=== PATIENT | male | born 1965 | race Caucasian/White ===

== ENCOUNTER 2017-10-10 21:56 | Emergency (ER) | payer BC ==
[~2017-10-10] VITALS: Ht 165.1 cm; Wt 75.0 kg
[~2017-10-10 21:56] MED LIST: ALPR-138 PO; CEPH500; HYDR-3129 PO; HYDR-3534 PO; METO50TA PO
[2017-10-10 21:57] VITALS: BP 142/104; PULSE 132; RESP 18; TEMP 98.7; O2SAT 97
[2017-10-10] MEDS ORDERED: METO50TA PO (22:33)
[2017-10-10] MEDS ORDERED: HYDR-3583 PO (22:33)
[2017-10-10] MEDS ORDERED: METF1000 PO (22:33)
[2017-10-10] MEDS ORDERED: ALPR.5 PO (22:33)
[2017-10-10] MEDS ORDERED: ROSU40 PO (22:34)
[2017-10-10 22:35] VITALS: BP 137/71; PULSE 117; RESP 18; TEMP 99.5; O2SAT 97
[2017-10-10] MEDS ORDERED: PANTOPRAZOLE SODIUM 40 MG VIAL IV PUSH ONE (23:00)
[2017-10-10] MEDS ORDERED: LIDOCAINE VISCOUS 2% SOLN 15 ML UDC SWISH-SWAL ONE (23:00)
[2017-10-10] MEDS ORDERED: ALUMINUM/MAGNESIUM/SIMETH 30 ML CUP PO ONE (23:00)
[2017-10-10] MEDS ORDERED: ONDANSETRON HCL 4 MG/2 ML VIAL ONE (23:18)
[2017-10-10 23:45] LABS: AUTOMATED NEUTROPHIL # 5.9 TH/MM3 (1.8-7.7); BASOPHIL % 0.2 % (0.0-2.0); EOSINOPHIL % 0.4 % (0.0-4.0); HEMATOCRIT 46.8 % (39.0-51.0); HEMOGLOBIN 16.1 GM/DL (13.0-17.0); LYMPH % 22.1 % (9.0-44.0); LYMPHOCYTE # 1.9 TH/MM3 (1.0-4.8); MEAN CELL VOLUME 102.2 FL (80.0-100.0); MEAN CORPUSCULAR HEMOGLOBIN 35.1 PG (27.0-34.0); MEAN CORPUSCULAR HGB CONC 34.3 % (32.0-36.0); MEAN PLATELET VOLUME 9.2 FL (7.0-11.0); MONO % 8.1 % (0.0-8.0); MONOCYTE # 0.7 TH/MM3 (0-0.9); NEUT % 69.2 % (16.0-70.0); PLATELET COUNT 103 TH/MM3 (150-450); RED BLOOD COUNT 4.58 MIL/MM3 (4.50-5.90); RED CELL DISTRIBUTION WIDTH 12.9 % (11.6-17.2); WHITE BLOOD COUNT 8.6 TH/MM3 (4.0-11.0)
--- NOTE | 2017-10-10 23:54 | PD ---
HPI Chief Complaint: Abdominal Pain Time Seen by Provider: 22:23 Travel History International Travel<30 days: No Contact w/Intl Traveler<30days: No Traveled to known affect area: No History of Present Illness HPI Patient is a 52-year-old male coming in with epigastric periumbilical pain that' s been off and on for the last few weeks. He denies having history of pancreatitis he denies having gallbladder history he does have a gastritis he takes by mouth PPIs he has got no relief from all the meds he tried at home. PFSH Past Medical History Arthritis: Yes (low back) Autoimmune Disease: No Blood Disorders: No Anxiety: Yes Depression: No Heart Rhythm Problems: Yes (TACHYCARDIA) Cancer: No Cardiovascular Problems: No High Cholesterol: Yes Chemotherapy: No Congestive Heart Failure: No Diabetes: No Diminished Hearing: No Endocrine: No Gastrointestinal Disorders: Yes (ESOPHAGEAL DILATION X2) GERD: Yes (none for past 7 years) Glaucoma: No Genitourinary: No Hepatitis: No Hiatal Hernia: No Heparin Induced Thrombocytopen: No Hypertension: Yes Immune Disorder: No Implanted Vascular Access Dvce: No Medical other: No Musculoskeletal: Yes (LUMBAR PAIN) Neurologic: No Psychiatric: Yes (ANXIETY) Respiratory: Yes (HX LEGIONAIRES DIS.) Immunizations Current: Yes Myocardial Infarction: No Radiation Therapy: No Seizures: Yes (1 SEIZURE 2 YEARS AGO) Sickle Cell Disease: No Sleep Apnea: Yes (according to girlfriend) Thyroid Disease: No Ulcer: No Tetanus Vaccination: < 5 Years Influenza Vaccination: No Past Surgical History Abdominal Surgery: No AICD: No Arteriovenous Shunt: No Cardiac Surgery: No Genitourinary Surgery: No Insulin Pump: No Joint Replacement: No Neurologic Surgery: Yes (LUMBAR DISCECTOMY) Pacemaker: No Thoracic Surgery: Yes (BRONCHOSCOPY) Other Surgery: Yes (back surgery, left knee surgery) Social History Alcohol Use: Yes (EVERY WEEKEND; ALOT) Tobacco Use: Yes (3/4 PPD) Substance Use: No Allergies-Medications (Allergen,Severity, Reaction): Coded Allergies: No Known Allergies (Verified Adverse Reaction, Unknown, 10/10/17) Reported Meds & Prescriptions Reported Meds & Active Scripts Active Reglan (Metoclopramide HCl) 10 Mg Tab 10 Mg PO QID Protonix (Pantoprazole Sodium) 40 Mg Tab 40 Mg PO DAILY Pepcid (Famotidine) 20 Mg Tab 20 Mg PO BID Reported Crestor (Rosuvastatin Calcium) 40 Mg Tab 40 Mg PO DAILY Xanax (Alprazolam) 0.5 Mg Tab 0.5 Mg PO Q8H PRN Hydrocodone-Acetaminophen 10-325 mg Tab 1 Tab PO Q6H PRN Metoprolol Tartrate 50 Mg Tab 50 Mg PO BID Metformin (Metformin HCl) 1,000 Mg Tab 1,000 Mg PO BIDPC Review of Systems Except as stated in HPI: all other systems reviewed are Neg Gastrointestinal: Positive: Nausea, Abdominal Pain Physical Exam Narrative GENERAL: SKIN: Warm and dry. HEAD: Atraumatic. Normocephalic. EYES: Pupils equal and round. No scleral icterus. No injection or drainage. ENT: No nasal bleeding or discharge. Mucous membranes pink and moist. NECK: Trachea midline. No JVD. CARDIOVASCULAR: Regular rate and rhythm. RESPIRATORY: No accessory muscle use. Clear to auscultation. Breath sounds equal bilaterally. GASTROINTESTINAL: Abdomen tender periumbilical soft,. Hepatic and splenic margins not palpable. MUSCULOSKELETAL: Extremities without clubbing, cyanosis, or edema. No obvious deformities. NEUROLOGICAL: Awake and alert. No obvious cranial nerve deficits. Motor grossly within normal limits. Five out of 5 muscle strength in the arms and legs. Normal speech. PSYCHIATRIC: Appropriate mood and affect; insight and judgment normal. Data Data Last Documented VS Vital Signs Date Time Temp Pulse Resp B/P (MAP) Pulse Ox O2 Delivery O2 Flow Rate FiO2 10/11/17 02:49 10/11/17 02:30 101 22 98 Room Air 10/10/17 22:35 99.5 Orders Orders Complete Blood Count With Diff (10/10/17 22:50) Comprehensive Metabolic Panel (10/10/17 22:50) Lipase (10/10/17 22:50) Pantoprazole Inj (Protonix Inj) (10/10/17 23:00) Al-Mag Hy-Si 40-40-4 Mg/Ml Liq (Mag-Al P (10/10/17 23:00) Lidocaine 2% Viscous (Xylocaine 2% Visco (10/10/17 23:00) Ondansetron Inj (Zofran Inj) (10/10/17 23:18) Morphine Inj (Morphine Inj) (10/11/17 00:00) Ct Abd/Pel W Iv Contrast(Rout) (10/11/17 ) Oral Contrast - Adult (10/11/17 00:22) Iohexol 350 Inj (Omnipaque 350 Inj) (10/11/17 01:29) Metoclopramide Inj (Reglan Inj) (10/11/17 02:00) Morphine Inj (Morphine Inj) (10/11/17 02:00) Ed Discharge Order (10/11/17 02:36) Electrocardiogram (10/11/17 02:19) Labs Laboratory Tests Test 10/10/17 23:32 White Blood Count 8.6 TH/MM3 Red Blood Count 4.58 MIL/MM3 Hemoglobin 16.1 GM/DL Hematocrit 46.8 % Mean Corpuscular Volume 102.2 FL Mean Corpuscular Hemoglobin 35.1 PG Mean Corpuscular Hemoglobin Concent 34.3 % Red Cell Distribution Width 12.9 % Platelet Count 103 TH/MM3 Mean Platelet Volume 9.2 FL Neutrophils (%) (Auto) 69.2 % Lymphocytes (%) (Auto) 22.1 % Monocytes (%) (Auto) 8.1 % Eosinophils (%) (Auto) 0.4 % Basophils (%) (Auto) 0.2 % Neutrophils # (Auto) 5.9 TH/MM3 Lymphocytes # (Auto) 1.9 TH/MM3 Monocytes # (Auto) 0.7 TH/MM3 Eosinophils # (Auto) 0.0 TH/MM3 Basophils # (Auto) 0.0 TH/MM3 CBC Comment DIFF FINAL Differential Comment Blood Urea Nitrogen 8 MG/DL Creatinine 1.42 MG/DL Random Glucose 108 MG/DL Total Protein 9.4 GM/DL Albumin 5.2 GM/DL Calcium Level 10.6 MG/DL Alkaline Phosphatase 78 U/L Aspartate Amino Transf (AST/SGOT) 50 U/L Alanine Aminotransferase (ALT/SGPT) 47 U/L Total Bilirubin 0.8 MG/DL Sodium Level 138 MEQ/L Potassium Level 3.1 MEQ/L Chloride Level 100 MEQ/L Carbon Dioxide Level 26.4 MEQ/L Anion Gap 12 MEQ/L Estimat Glomerular Filtration Rate 52 ML/MIN Lipase 428 U/L [facility] Medical Decision Making Medical Screen Exam Complete: Yes Emergency Medical Condition: Yes Differential Diagnosis pancreatitis vs GB disease Gastritis vs mesenteric adenitis, other Narrative Course CAT scan was negative for any acute pathology lipase is only 428 Protonix given Zofran is given Reglan is given morphine 4 mg 2 is discharged with a copy of the results of his CAT scan and prescriptions for Reglan and Pepcid and Protonix Diagnosis Primary Impression: Gastritis Qualified Codes: 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
[2017-10-11 00:02] LABS: ALBUMIN 5.2 GM/DL (3.4-5.0); ALT (GPT) 47 U/L (12-78); AST (GOT) 50 U/L (15-37); BICARBONATE 26.4 MEQ/L (21.0-32.0); BLOOD UREA NITROGEN 8 MG/DL (7-18); CALCIUM 10.6 MG/DL (8.5-10.1); CHLORIDE 100 MEQ/L (98-107); CREATININE 1.42 MG/DL (0.60-1.30); GLOMERULAR FILTRATION RATE 52 ML/MIN (>89); GLUCOSE,RANDOM 108 MG/DL (74-106); LIPASE 428 U/L (73-393); SODIUM (NA) 138 MEQ/L (136-145)
[2017-10-11 00:05] LABS: ALKALINE PHOSPHATASE 78 U/L (45-117); TOTAL BILIRUBIN ADULT 0.8 MG/DL (0.2-1.0); TOTAL PROTEIN 9.4 GM/DL (6.4-8.2)
[2017-10-11] MEDS ORDERED: IOHEXOL 350 MG/ML 10 ML VIAL (for RAD DIAG) IVCONTRAST ONE (01:29)
--- NOTE | 2017-10-11 01:51 | RADRPT ---
EXAM DATE/TIME: 10/11/2017 01:16 [place] COMPARISON: No previous studies available for comparison. INDICATIONS : Abdominal pain. IV CONTRAST: 100 cc Omnipaque 350 (iohexol) IV ORAL CONTRAST: No oral contrast ingested. RADIATION DOSE: 6.71 CTDIvol (mGy) MEDICAL HISTORY : Hypertension. Cardiovascular disease Liver disease. SURGICAL HISTORY : None. ENCOUNTER: Initial ACUITY: 1 day PAIN SCALE: 8/10 LOCATION: abdomen TECHNIQUE: Volumetric scanning of the abdomen and pelvis was performed. Using automated exposure control and ad justment of the mA and/or kV according to patient size, radiation dose was kept as low as reasonably achievable to obtain optimal diagnostic quality images. DICOM format image data is available electro nically for review and comparison. FINDINGS: LOWER LUNGS: The visualized lower lungs are clear. LIVER: Moderate severity diffuse hypodensity of the liver indicating hepatic steatosis. A 8mm hyperdensity i n the dependent portion of the gallbladder indicating small calculi or sludge. No pericolic cystic in flammatory changes identified. SPLEEN: Normal size without lesion. PANCREAS: Within normal limits. KIDNEYS: Normal in size and shape. There is no mass, stone or hydronephrosis. ADRENAL GLANDS: Within normal limits. VASCULAR: There is no aortic aneurysm. BOWEL/MESENTERY: Mild proximal small bowel distention. No transition point. No bowel wall thickening identified.. No f ree air or free fluid. Appendix within normal limits. ABDOMINAL WALL: Within normal limits. RETROPERITONEUM: There is no lymphadenopathy. BLADDER: No wall thickening or mass. REPRODUCTIVE: Within normal limits. INGUINAL: Small fat containing left inguinal hernia. MUSCULOSKELETAL: Small osteophytes of the hips bilaterally. Mild degenerative findings of the lumbar spine. CONCLUSION: 1. Hepatic steatosis. 2. Cholelithiasis versus sludge. No pericholecystic inflammatory changes. 3. Nonspecific mild proximal small bowel dilatation. No transition point. Tonny Echeverria MD on October 11, 2017 at 1:41 Board Certified Radiologist. This report was verified electronically.
[2017-10-11] MEDS ORDERED: MORPHINE SULFATE 4 MG/ML INJ IV PUSH ONE ×2 (02:00)
[2017-10-11] MEDS ORDERED: METOCLOPRAMIDE INJ 10 MG in SODIUM CHLORIDE 0.9% INJ 50 ML IV ONE (02:00)
[2017-10-11 02:30] VITALS: BP 122/78; PULSE 101; RESP 22; O2SAT 98
[2017-10-11] MEDS ORDERED: PROT40TA PO (02:40)
[2017-10-11] MEDS ORDERED: FAMO1TAB37 PO (02:40)
[2017-10-11] MEDS ORDERED: REGL10TA5 PO (03:13)
--- NOTE | 2017-10-11 10:42 | EKG ---
Date Performed: 10/11/2017 Time Performed: 02:19:43 PTAGE: 52 years EKG: SINUS TACHYCARDIA ABNORMAL RHYTHM ECG PREVIOUS TRACING : 08/11/2009 08.23 No significant change from previous tracing noted. DOCTOR: Leo Harman Interpretating Date/Time 10/11/2017 10:39:47
== END 2017-10-11 03:32 | disposition home or self-care (01) ==
LOC: NEPE 21:56
DX: K29.70 Gastritis, unspecified, without bleeding (principal); R00.0 Tachycardia, unspecified; R94.31 Abnormal electrocardiogram [ECG] [EKG]; M47.9 Spondylosis, unspecified; F41.9 Anxiety disorder, unspecified; E78.00 Pure hypercholesterolemia, unspecified; K21.9 Gastro-esophageal reflux disease without esophagitis; I10 Essential (primary) hypertension; F17.200 Nicotine dependence, unspecified, uncomplicated
CPT/HCPCS: 74177; 80053; 83690; 85025; 93005; 96374; 96375; 96376; 99285; C9113; J2270; J2405; J2765; Q9967

== ENCOUNTER 2017-11-10 20:11 | Emergency (ER) | payer BC ==
[~2017-11-10] VITALS: Ht 170.2 cm; Wt 79.5 kg
[~2017-11-10 20:11] MED LIST changes: -ALPR-138 PO; +ALPR.5 PO; -CEPH500; +FAMO1TAB37 PO; -HYDR-3129 PO; -HYDR-3534 PO; +HYDR-3583 PO; +METF1000 PO; +PROT40TA PO; +REGL10TA5 PO; +ROSU40 PO
[2017-11-10 20:14] VITALS: BP 151/81; PULSE 116; RESP 16; TEMP 97.9; O2SAT 98
[2017-11-10] MEDS ORDERED: SODIUM CHLOR 0.9% 1000 ML INJ 1,000 ML IV SCH (20:35)
[2017-11-10 20:50] VITALS: RESP 19; O2SAT 98
--- NOTE | 2017-11-10 21:07 | PD ---
HPI Chief Complaint: Abdominal Pain Time Seen by Provider: 20:23 Travel History International Travel<30 days: No Contact w/Intl Traveler<30days: No Traveled to known affect area: No History of Present Illness HPI 52-year-old male presents emergency department complaining of abdominal pain and nausea for about 1 week. Patient states that she has had this abdominal pain for 4-5 months and has been evaluated previously but has not had a follow- up with a gastric intestinal doctor. Patient states that his abdominal pain is located in the mid abdomen area and is characterized as sharp, nonradiating, and intermittent. Patient states that at its worse, this pain is 8 out of 10 that lasts for about 10 minutes then goes away to a 4 out of 10. Patient states she he is nauseous and has had a decreased appetite for about a week. Denies diarrhea. Patient says his last bowel movement was 2 days ago which is normal for him. He says that he has had dark stools but denies hematochezia. Denies abdominal surgeries. Denies chronic medical issues or medication use. States he did receive Reglan and another medication at discharge but has not had a refill his medications. Patient states that Reglan controlled his abdominal pain previously. PFSH Past Medical History Arthritis: Yes (low back) Autoimmune Disease: No Blood Disorders: No Anxiety: Yes Depression: No Heart Rhythm Problems: Yes (TACHYCARDIA) Cancer: No Cardiovascular Problems: Yes (HTN, hyperlipidemia) High Cholesterol: Yes Chemotherapy: No Congestive Heart Failure: No Diabetes: Yes Patient Takes Glucophage: Yes Diminished Hearing: No Endocrine: No Gastrointestinal Disorders: Yes (ESOPHAGEAL DILATION X2) GERD: Yes Glaucoma: No Genitourinary: No Hepatitis: No Hiatal Hernia: No Heparin Induced Thrombocytopen: No Hypertension: Yes Immune Disorder: No Implanted Vascular Access Dvce: No Musculoskeletal: Yes (LUMBAR PAIN) Neurologic: No Psychiatric: Yes (ANXIETY) Respiratory: Yes (HX LEGIONAIRES DIS.) Immunizations Current: Yes Myocardial Infarction: No Radiation Therapy: No Seizures: Yes Sickle Cell Disease: No Sleep Apnea: Yes Thyroid Disease: No Ulcer: No Tetanus Vaccination: < 5 Years Past Surgical History Abdominal Surgery: No AICD: No Arteriovenous Shunt: No Cardiac Surgery: No Genitourinary Surgery: No Insulin Pump: No Joint Replacement: No Neurologic Surgery: Yes (LUMBAR DISCECTOMY) Pacemaker: No Thoracic Surgery: Yes (BRONCHOSCOPY) Other Surgery: Yes (back surgery, left knee surgery) Social History Alcohol Use: Yes (EVERY WEEKEND; ALOT) Tobacco Use: Yes (3/4 PPD) Substance Use: No Allergies-Medications (Allergen,Severity, Reaction): Coded Allergies: No Known Allergies (Verified Adverse Reaction, Unknown, 10/10/17) Reported Meds & Prescriptions Reported Meds & Active Scripts Active Reglan (Metoclopramide HCl) 10 Mg Tab 10 Mg PO QID Protonix (Pantoprazole Sodium) 40 Mg Tab 40 Mg PO DAILY Pepcid (Famotidine) 20 Mg Tab 20 Mg PO BID Reported Crestor (Rosuvastatin Calcium) 40 Mg Tab 40 Mg PO DAILY Xanax (Alprazolam) 0.5 Mg Tab 0.5 Mg PO Q8H PRN Hydrocodone-Acetaminophen 10-325 mg Tab 1 Tab PO Q6H PRN Metoprolol Tartrate 50 Mg Tab 50 Mg PO BID Metformin (Metformin HCl) 1,000 Mg Tab 1,000 Mg PO BIDPC Review of Systems Except as stated in HPI: all other systems reviewed are Neg Physical Exam Narrative GENERAL: Well-nourished in mild distress SKIN: Focused skin assessment warm/dry. HEAD: Atraumatic. Normocephalic. EYES: Pupils equal and round. No scleral icterus. No injection or drainage. ENT: No nasal bleeding or discharge. Mucous membranes pink and moist. NECK: Trachea midline. No JVD. CARDIOVASCULAR: Regular rate and rhythm. No murmur appreciated. RESPIRATORY: No accessory muscle use. Clear to auscultation. Breath sounds equal bilaterally. GASTROINTESTINAL: Abdomen voluntary guarding, TTP to upper abdomen without radiation of pain. No ecchymosis, no fluid wave. MUSCULOSKELETAL: No obvious deformities. No clubbing. No cyanosis. No edema. No CVA tenderness NEUROLOGICAL: Awake and alert. No obvious cranial nerve deficits. Motor grossly within normal limits. Normal speech. PSYCHIATRIC: Appropriate mood and affect; insight and judgment normal. Data Data Last Documented VS Vital Signs Date Time Temp Pulse Resp B/P (MAP) Pulse Ox O2 Delivery O2 Flow Rate FiO2 11/11/17 00:14 100 16 116/58 (77) 100 11/10/17 20:50 Room Air 11/10/17 20:14 97.9 Orders Orders Complete Blood Count With Diff (11/10/17 20:35) Comprehensive Metabolic Panel (11/10/17 20:35) Lipase (11/10/17 20:35) Prothrombin Time / Inr (Pt) (11/10/17 20:35) Act Partial Throm Time (Ptt) (11/10/17 20:35) Iv Access Insert/Monitor (11/10/17 20:35) Ecg Monitoring (11/10/17 20:35) Oximetry (11/10/17 20:35) Sodium Chlor 0.9% 1000 Ml Inj (Ns 1000 M (11/10/17 20:35) Electrocardiogram (11/10/17 20:35) Us Abdomen Gallbladder (11/10/17 ) Metoclopramide Inj (Reglan Inj) (11/10/17 21:15) Morphine Inj (Morphine Inj) (11/10/17 23:00) Morphine Inj (Morphine Inj) (11/10/17 23:00) Lidocaine 2% Viscous (Xylocaine 2% Visco (11/10/17 23:00) Al-Mag Hy-Si 40-40-4 Mg/Ml Liq (Mag-Al P (11/10/17 23:00) Pantoprazole Inj (Protonix Inj) (11/10/17 23:00) Ed Discharge Order (11/10/17 23:32) Labs Laboratory Tests Test 11/10/17 20:45 White Blood Count 7.6 TH/MM3 Red Blood Count 4.42 MIL/MM3 Hemoglobin 15.5 GM/DL Hematocrit 44.9 % Mean Corpuscular Volume 101.7 FL Mean Corpuscular Hemoglobin 35.2 PG Mean Corpuscular Hemoglobin Concent 34.6 % Red Cell Distribution Width 13.3 % Platelet Count 144 TH/MM3 Mean Platelet Volume 9.1 FL Neutrophils (%) (Auto) 61.3 % Lymphocytes (%) (Auto) 31.6 % Monocytes (%) (Auto) 6.2 % Eosinophils (%) (Auto) 0.7 % Basophils (%) (Auto) 0.2 % Neutrophils # (Auto) 4.7 TH/MM3 Lymphocytes # (Auto) 2.4 TH/MM3 Monocytes # (Auto) 0.5 TH/MM3 Eosinophils # (Auto) 0.1 TH/MM3 Basophils # (Auto) 0.0 TH/MM3 CBC Comment DIFF FINAL Differential Comment Prothrombin Time 11.6 SEC Prothromb Time International Ratio 1.1 RATIO Activated Partial Thromboplast Time 26.9 SEC Blood Urea Nitrogen 8 MG/DL Creatinine 1.11 MG/DL Random Glucose 123 MG/DL Total Protein 9.1 GM/DL Albumin 5.0 GM/DL Calcium Level 9.7 MG/DL Alkaline Phosphatase 98 U/L Aspartate Amino Transf (AST/SGOT) 40 U/L Alanine Aminotransferase (ALT/SGPT) 40 U/L Total Bilirubin 1.0 MG/DL Sodium Level 137 MEQ/L Potassium Level 3.3 MEQ/L Chloride Level 100 MEQ/L Carbon Dioxide Level 22.9 MEQ/L Anion Gap 14 MEQ/L Estimat Glomerular Filtration Rate 70 ML/MIN Lipase 181 U/L [facility] Medical Decision Making Medical Screen Exam Complete: Yes Emergency Medical Condition: Yes Differential Diagnosis Cholecystitis, cholangitis, pancreatitis, duodenitis, alcoholic gastritis Narrative Course 52-year-old male presents emergency department complaining of abdominal pain and nausea for about 1 week. Patient states that she has had this abdominal pain for 4-5 months and has been evaluated previously but has not had a follow- up with a gastric intestinal doctor. Patient states that his abdominal pain is located in the mid abdomen area and is characterized as sharp, nonradiating, and intermittent. Patient states that at its worse, this pain is 8 out of 10 that lasts for about 10 minutes then goes away to a 4 out of 10. Patient states she he is nauseous and has had a decreased appetite for about a week. Denies diarrhea. Patient says his last bowel movement was 2 days ago which is normal for him. He says that he has had dark stools but denies hematochezia. Denies abdominal surgeries. Denies chronic medical issues or medication use. States he did receive Reglan and another medication at discharge but has not had a refill his medications. Patient states that Reglan controlled his abdominal pain previously. Admits to drinking 5 drinks daily since he was' a teenager'. Vital signs- mildly tachycardic at 116, 100 while in bed resting. Physical exam findings diffuse of abdominal pain localized to the upper abdominal area. No rebound tenderness. No Rovsing's, Luna's, McBurnys point. Reglan, Maalox and lidocaine, and eventually morphine administered for pain. Lab findings- mild hypokalemia at 3.3. No Leukocytosis Ultrasound demonstrates gallbladder sludge versus stones. No evidence of cholecystitis. After further discussion with the patient, patient states that his pain today is very similar to his previous pain in August. I discussed the likely diagnosis which is gastritis. I advised patient to stop drinking as this likely contributes to his symptoms. Reglan and protonix for outpatient therapy. Patient be discharged with strict instructions to follow up as an outpatient with GI doctor. Diagnosis Primary Impression: Gastritis Qualified Codes: K29.20 - Alcoholic gastritis without bleeding Referrals: Endoscopy Technician Additional Instructions: Decrease alcohol use. Take all medications as prescribed. Follow-up with a superintendent stevedoring. Follow-up with your primary care physician within 2-3 days. Scripts Metoclopramide (Reglan) 10 Mg Tab 10 MG PO QID, #30 TAB 0 Refills Prov: Aisha Willson 11/10/17 Pantoprazole (Protonix) 40 Mg Tab 40 MG PO DAILY for Reflux, #30 TAB 0 Refills Prov: Aisha Willson 11/10/17 Disposition: 01 DISCHARGE HOME Condition: Stable Aisha Willson Nov 10, 2017 21:07
[2017-11-10] MEDS ORDERED: METOCLOPRAMIDE HCL 10 MG/2 ML VIAL IV PUSH ONE (21:15)
[2017-11-10 21:21] LABS: AUTOMATED NEUTROPHIL # 4.7 TH/MM3 (1.8-7.7); BASOPHIL % 0.2 % (0.0-2.0); EOSINOPHIL # 0.1 TH/MM3 (0-0.4); EOSINOPHIL % 0.7 % (0.0-4.0); HEMATOCRIT 44.9 % (39.0-51.0); HEMOGLOBIN 15.5 GM/DL (13.0-17.0); LYMPH % 31.6 % (9.0-44.0); LYMPHOCYTE # 2.4 TH/MM3 (1.0-4.8); MEAN CELL VOLUME 101.7 FL (80.0-100.0); MEAN CORPUSCULAR HEMOGLOBIN 35.2 PG (27.0-34.0); MEAN CORPUSCULAR HGB CONC 34.6 % (32.0-36.0); MEAN PLATELET VOLUME 9.1 FL (7.0-11.0); MONO % 6.2 % (0.0-8.0); MONOCYTE # 0.5 TH/MM3 (0-0.9); NEUT % 61.3 % (16.0-70.0); PLATELET COUNT 144 TH/MM3 (150-450); RED BLOOD COUNT 4.42 MIL/MM3 (4.50-5.90); RED CELL DISTRIBUTION WIDTH 13.3 % (11.6-17.2); WHITE BLOOD COUNT 7.6 TH/MM3 (4.0-11.0)
[2017-11-10 21:29] LABS: INTERNATIONAL NORMALIZED RATIO 1.1 RATIO; PROTHROMBIN TIME - PATIENT 11.6 SEC (9.8-11.6)
[2017-11-10 21:36] LABS: AST (GOT) 40 U/L (15-37); BICARBONATE 22.9 MEQ/L (21.0-32.0); BLOOD UREA NITROGEN 8 MG/DL (7-18); CALCIUM 9.7 MG/DL (8.5-10.1); CHLORIDE 100 MEQ/L (98-107); CREATININE 1.11 MG/DL (0.60-1.30); GLOMERULAR FILTRATION RATE 70 ML/MIN (>89); GLUCOSE,RANDOM 123 MG/DL (74-106); LIPASE 181 U/L (73-393); SODIUM (NA) 137 MEQ/L (136-145)
--- NOTE | 2017-11-10 21:36 | PD ---
Physical Exam Narrative General: The patient is -. Head and Neck exam: Head is normocephalic atraumatic. Eyes: EOMI, pupils are equal round and reactive to light. Nose: Midline septum with pink mucous membranes Mouth: Dentition unremarkable. Moist mucus membranes. Posterior oropharynx is not erythematous. No tonsillar hypertrophy. Uvula midline. Airway patent. Neck: No palpable lymphadenopathy. No nuchal rigidity. No thyromegaly. Cardiovascular: Regular rate and rhythm without murmurs, gallops, or rubs. No pulse deficit to the extremities. Lungs: Clear to auscultation bilaterally. No wheezes, rhonchi, or rales. Abdomen: Soft, without tenderness to palpation in all 4 quadrants of the abdomen. No guarding, rebound, or rigidity. Negative Yolo sign. Extremities: No clubbing, cyanosis, or edema. 2+ pulses in all 4 extremities. Back: No spinous process tenderness to palpation. No costovertebral angle tenderness to palpation. Neurologic Exam: Cranial nerves 2-12 were intact on exam. Strength is 5/5 in all 4 extremities. No sensory deficits noted. No dysdiadochokinesis. Good finger to nose and Heel to cardozo bilaterally. Skin Exam: No rash noted. Intact skin that is warm and dry. Data Data Last Documented VS Vital Signs Date Time Temp Pulse Resp B/P (MAP) Pulse Ox O2 Delivery O2 Flow Rate FiO2 11/11/17 00:14 100 16 116/58 (77) 100 11/10/17 20:50 Room Air 11/10/17 20:14 97.9 Orders Orders Complete Blood Count With Diff (11/10/17 20:35) Comprehensive Metabolic Panel (11/10/17 20:35) Lipase (11/10/17 20:35) Prothrombin Time / Inr (Pt) (11/10/17 20:35) Act Partial Throm Time (Ptt) (11/10/17 20:35) Iv Access Insert/Monitor (11/10/17 20:35) Ecg Monitoring (11/10/17 20:35) Oximetry (11/10/17 20:35) Sodium Chlor 0.9% 1000 Ml Inj (Ns 1000 M (11/10/17 20:35) Electrocardiogram (11/10/17 20:35) Us Abdomen Gallbladder (11/10/17 ) Metoclopramide Inj (Reglan Inj) (11/10/17 21:15) Morphine Inj (Morphine Inj) (11/10/17 23:00) Morphine Inj (Morphine Inj) (11/10/17 23:00) Lidocaine 2% Viscous (Xylocaine 2% Visco (11/10/17 23:00) Al-Mag Hy-Si 40-40-4 Mg/Ml Liq (Mag-Al P (11/10/17 23:00) Pantoprazole Inj (Protonix Inj) (11/10/17 23:00) Ed Discharge Order (11/10/17 23:32) Labs Laboratory Tests Test 11/10/17 20:45 White Blood Count 7.6 TH/MM3 Red Blood Count 4.42 MIL/MM3 Hemoglobin 15.5 GM/DL Hematocrit 44.9 % Mean Corpuscular Volume 101.7 FL Mean Corpuscular Hemoglobin 35.2 PG Mean Corpuscular Hemoglobin Concent 34.6 % Red Cell Distribution Width 13.3 % Platelet Count 144 TH/MM3 Mean Platelet Volume 9.1 FL Neutrophils (%) (Auto) 61.3 % Lymphocytes (%) (Auto) 31.6 % Monocytes (%) (Auto) 6.2 % Eosinophils (%) (Auto) 0.7 % Basophils (%) (Auto) 0.2 % Neutrophils # (Auto) 4.7 TH/MM3 Lymphocytes # (Auto) 2.4 TH/MM3 Monocytes # (Auto) 0.5 TH/MM3 Eosinophils # (Auto) 0.1 TH/MM3 Basophils # (Auto) 0.0 TH/MM3 CBC Comment DIFF FINAL Differential Comment Prothrombin Time 11.6 SEC Prothromb Time International Ratio 1.1 RATIO Activated Partial Thromboplast Time 26.9 SEC Blood Urea Nitrogen 8 MG/DL Creatinine 1.11 MG/DL Random Glucose 123 MG/DL Total Protein 9.1 GM/DL Albumin 5.0 GM/DL Calcium Level 9.7 MG/DL Alkaline Phosphatase 98 U/L Aspartate Amino Transf (AST/SGOT) 40 U/L Alanine Aminotransferase (ALT/SGPT) 40 U/L Total Bilirubin 1.0 MG/DL Sodium Level 137 MEQ/L Potassium Level 3.3 MEQ/L Chloride Level 100 MEQ/L Carbon Dioxide Level 22.9 MEQ/L Anion Gap 14 MEQ/L Estimat Glomerular Filtration Rate 70 ML/MIN Lipase 181 U/L [facility] Medical Record Reviewed: Yes Supervised Visit with RK: Yes Narrative Course I, Dr. Leggett, have reviewed the advance practice practitioner's documentation and am in agreement, met with the patient face to face, made the diagnosis, and the medical decision making was done by me. The patient was initially evaluated by by [place], the physician laboratory assistant. Please see their complete history and physical. *My assessment and Findings: The patient presents with a history of recurrent abdominal pain. The patient has had intermittent abdominal pain for the last few months. The patient with seen in the emergency department regarding this abdominal pain previously had had a CT scan done which revealed gallbladder sludge. The patient has placed on medications for symptom improvement, however he never followed up with primary care physician or keyboard specialist regarding his symptoms. During the course of the patients emergency department visit, the patients history, examination, and differential diagnosis were reviewed with the patient. The patient was placed on a sweatband drummer with oximetry and frequent blood pressure monitoring. The patient had IV access obtained and blood work sent for analysis. The patient was initially provided Reglan 5 mg IV, normal saline 1 L IV fluid bolus, Protonix 40 mg IV, morphine for pain, had a GI cocktail The patients laboratory studies were reviewed and remarkable for CBC as remarkable for white count of 7.6, hemoglobin 15.5, platelets 144 with a normal differential, CMP as remarkable for potassium 3.3, glucose 123, AST 40, total protein 9.1, lipase 181, PT 11.6, PTT 26.9. Radiology studies were reviewed and remarkable for ultrasound of the gallbladder reveals hepatic steatosis, 2 small noncalcified stones versus sludge balls, no sonographic evidence to suggest acute cholecystitis The patient will be discharged home with a proton pump inhibitor antinausea medication. He has instructed to follow-up with a primary care physician regarding his symptoms. The patient is resting comfortably and feels better, is alert and in no distress. The patients results and examination findings were discussed with the patient. The repeat examination is unremarkable and benign. The history, exam, diagnostic testing, and current condition do not suggest any significant pathology to warrant further testing, continued ED treatment, admission, or surgical evaluation at this point. The vital signs have been stable. The patient does not have uncontrollable pain, intractable vomiting, or other significant symptoms. The patient's condition is stable and appropriate for discharge. The patient will pursue further outpatient evaluation with a primary care physician or other designated or consulting physician as indicated in the discharge instructions. The patient expressed understanding and was agreeable with this plan. Diagnosis Primary Impression: Gastritis Qualified Codes: K29.20 - Alcoholic gastritis without bleeding Additional Impression: Gallbladder sludge Referrals: Primary Care Physician Patient Instructions: Abdominal Pain (ED), General Instructions Scripts Metoclopramide (Reglan) 10 Mg Tab 10 MG PO QID, #30 TAB 0 Refills Prov: Aihsa Willson 11/10/17 Pantoprazole (Protonix) 40 Mg Tab 40 MG PO DAILY for Reflux, #30 TAB 0 Refills Prov: Aisha Willson 11/10/17 Disposition: 01 DISCHARGE HOME Condition: Stable Anita Leggett MD Nov 10, 2017 21:36
[2017-11-10 21:37] LABS: ALT (GPT) 40 U/L (12-78)
[2017-11-10 21:39] LABS: ALKALINE PHOSPHATASE 98 U/L (45-117); TOTAL PROTEIN 9.1 GM/DL (6.4-8.2)
--- NOTE | 2017-11-10 22:24 | RADRPT ---
EXAM DATE/TIME: 11/10/2017 21:44 [facility] COMPARISON: CT ABDOMEN & PELVIS W CONTRAST, October 11, 2017, 1:16. INDICATIONS : Right upper quadrant pain. MEDICAL HISTORY : Gastroesophageal reflux disease. Hypercholesterolemia. Hypertension. Head trauma. Sleep apnea. Arthri tis. Diabetes. Liver disease. Anxiety. Legionaires disease. SURGICAL HISTORY : Lumbar discectomy. Esophageal dilation. Left knee surgery. ENCOUNTER: Initial ACUITY: 4-6 months PAIN SCORE: 7/10 LOCATION: Right upper quadrant MEASUREMENTS: LIVER: 17.5 cm length COMMON DUCT: 4 mm RIGHT KIDNEY: 11.6 x 5.0 x 6.2 cm FINDINGS: LIVER: The liver is diffusely echogenic. No mass or ductal dilatation. Hepatopedal flow within the portal ve in. COMMON DUCT: No intraluminal mass or stone visualized. GALLBLADDER: 2 tiny echogenic foci abutting the wall the gallbladder. These are without shadowing. No gallbladder wall thickening. No pericholecystic fluid. PANCREAS: The visualized portions are within normal limits. RIGHT KIDNEY: No evidence of hydronephrosis, stone, or mass. CONCLUSION: 1. Hepatic steatosis. 2. 2 small noncalcified stones versus sludge balls. No sonographic evidence to suggest acute cholecys titis. Toro Castellon Jr., MD on November 10, 2017 at 22:18 Board Certified Radiologist. This report was verified electronically.
[2017-11-10] MEDS ORDERED: ALUMINUM/MAGNESIUM/SIMETH 30 ML CUP PO ONE (23:00)
[2017-11-10] MEDS ORDERED: MORPHINE SULFATE 2 MG/ML INJ IM ONE ×2 (23:00)
[2017-11-10] MEDS ORDERED: LIDOCAINE VISCOUS 2% SOLN 15 ML UDC SWISH-SWAL ONE (23:00)
[2017-11-10] MEDS ORDERED: PANTOPRAZOLE SODIUM 40 MG VIAL IV PUSH ONE (23:00)
[2017-11-10] MEDS ORDERED: REGL10TA5 PO (23:15)
[2017-11-10] MEDS ORDERED: PROT40TA PO (23:15)
[2017-11-11 00:14] VITALS: BP 116/58
--- NOTE | 2017-11-11 15:55 | EKG ---
Date Performed: 11/10/2017 Time Performed: 20:49:48 PTAGE: 52 years EKG: Sinus rhythm Since previous tracing, no significant change noted NORMAL ECG PREVIOUS TRACING : 10/11/2017 02.19 DOCTOR: Dayami Dobbs Interpretating Date/Time 11/11/2017 15:53:56
== END 2017-11-11 00:33 | disposition home or self-care (01) ==
LOC: NEPC 20:11
DX: K29.20 Alcoholic gastritis without bleeding (principal); R10.11 Right upper quadrant pain; R00.0 Tachycardia, unspecified; I10 Essential (primary) hypertension; E78.00 Pure hypercholesterolemia, unspecified; E11.9 Type 2 diabetes mellitus without complications; K21.9 Gastro-esophageal reflux disease without esophagitis; G47.30 Sleep apnea, unspecified
CPT/HCPCS: 76705; 80053; 83690; 85025; 85610; 85730; 93005; 96361; 96372; 96374; 96375; 99285; C9113; J2270; J2765; J7030